=== PATIENT | female | born 1955 | race Native Hawaiian/Other Pacific Islander ===

== ENCOUNTER 2016-12-20 11:48 | Outpatient (CLI) | payer OTHER ==
[~2016-12-20 11:48] MED LIST: ACET7.5T70 PO; ALLO100T22 PO; CARBAMAZEPIN200 M1 PO; CARBAMAZEPIN200 M2 PO; DEMADEX20 MG PO; ESTR0.3T3 PO; FAMO20TA4 PO; FLUT0.05 NAS; FOLI1TAB26 PO; GABA300C2 PO; HYDR25TA60 PO; IRON SUPPLEMEN325 MG PO; K-TABS10 MEQ PO; LAMISIL250 MG OR; LISI5TAB10 PO; MECL25TA84 PO; MECLIZINE25 MG PO; METO50TA27 PO; NABU750T PO; NABUMETONE750 MG PO; NITR0.4S2 SL; OXYB5TAB56 PO; OXYC5TAB53 PO; PANT40TA PO; PHENOBARB32.4 MG PO; PLAVIX75 MG PO; POTASSIUM25 MEQ OR; PROM25TA52 PO; RANI150T78 PO; TRAZ50TA36 PO; UNITH DIRECT25 MCG PO; ZOCOR80 MG PO
== END 2016-12-20 11:51 | disposition short-term general hospital (02) ==
LOC: AMB 11:48
DX: G40.89 Other seizures (principal)
CPT/HCPCS: A0425; A0429

== ENCOUNTER 2016-12-20 11:55 | Emergency (ER) | payer OTHER ==
[~2016-12-20] VITALS: Ht 170.2 cm; Wt 49.0 kg
[2016-12-20 11:55] VITALS: TEMP 98
[2016-12-20 12:51] LABS: POTASSIUM 3.4 mmol/L (3.6-5.2)
[2016-12-20 14:10] LABS: PLATELET COUNT 232 K/uL (152-353)
[2016-12-20 14:15] VITALS: BP 127/71
== END 2016-12-20 15:30 | disposition home or self-care (01) ==
LOC: ED 11:55
DX: R56.9 Unspecified convulsions (principal); I69.398 Other sequelae of cerebral infarction; G93.89 Other specified disorders of brain
CPT/HCPCS: 36415; 80053; 85027; 99283

== ENCOUNTER 2016-12-22 11:35 | Outpatient (CLI) | payer OTHER | END 2016-12-22 11:37 | disposition short-term general hospital (02) | LOC: AMB 11:35 | DX: R11.2 Nausea with vomiting, unspecified (principal); R19.7 Diarrhea, unspecified | CPT/HCPCS: A0425; A0429 ==

== ENCOUNTER 2016-12-23 11:45 | Outpatient (CLI) | payer OTHER | END 2016-12-23 12:01 | disposition short-term general hospital (02) | LOC: AMB 11:45 | DX: R11.2 Nausea with vomiting, unspecified (principal); R53.1 Weakness | CPT/HCPCS: A0425; A0427 ==

== ENCOUNTER 2017-01-27 13:18 | Outpatient (CLI) | payer OTHER | END 2017-01-27 18:00 | disposition home or self-care (01) | LOC: LAB 13:18 | DX: N39.0 Urinary tract infection, site not specified (principal) | CPT/HCPCS: 81000; 87077; 87086; 87088; 87186 ==

== ENCOUNTER 2017-05-07 11:18 | Outpatient (CLI) | payer OTHER ==
[2017-05-07] MEDS ORDERED: CLOP75TA2 PO (12:53)
[2017-05-07] MEDS ORDERED: GRALISE600 MG OR (12:54)
== END 2017-05-07 11:21 | disposition short-term general hospital (02) ==
LOC: AMB 11:18
DX: R60.0 Localized edema (principal); L97.528 Non-pressure chronic ulcer of other part of left foot with other specified severity
CPT/HCPCS: A0425; A0427

== ENCOUNTER 2017-05-07 11:44 | Emergency (ER) | payer OTHER ==
[~2017-05-07] VITALS: Ht 170.2 cm; Wt 77.1 kg
[2017-05-07 12:25] LABS: PLATELET COUNT 209 K/uL (152-353)
[2017-05-07 12:46] LABS: POTASSIUM 3.2 mmol/L (3.6-5.2)
[2017-05-07] MEDS ORDERED: CLOP75TA2 PO (12:53)
[2017-05-07] MEDS ORDERED: GRALISE600 MG OR (12:54)
[2017-05-07 13:00] VITALS: TEMP 98
[2017-05-07 16:15] VITALS: BP 136/80
== END 2017-05-07 16:00 | disposition home or self-care (01) ==
LOC: ED 11:44
PROVIDERS: Emergency Medicine
DX: I73.89 Other specified peripheral vascular diseases (principal); D63.8 Anemia in other chronic diseases classified elsewhere; E87.6 Hypokalemia; I10 Essential (primary) hypertension; L08.89 Other specified local infections of the skin and subcutaneous tissue; E88.09 Other disorders of plasma-protein metabolism, not elsewhere classified
CPT/HCPCS: 36415; 80053; 80156; 80184; 81000; 82550; 84484; 85027; 87070; 87077; 87186; 87205; 99283

== ENCOUNTER 2017-05-09 11:11 | Outpatient (CLI) | payer OTHER ==
[~2017-05-09 11:11] MED LIST changes: +CLOP75TA2 PO; +GRALISE600 MG OR
== END 2017-05-09 11:14 | disposition short-term general hospital (02) ==
LOC: AMB 11:11
DX: M79.672 Pain in left foot (principal); M79.671 Pain in right foot; R53.1 Weakness; W18.39XA Other fall on same level, initial encounter; Y92.098 Other place in other non-institutional residence as the place of occurrence of the external cause
CPT/HCPCS: A0425; A0429

== ENCOUNTER 2017-05-09 11:15 | Emergency (ER) | payer OTHER ==
[~2017-05-09] VITALS: Ht 170.2 cm; Wt 72.6 kg
[2017-05-09 11:24] VITALS: BP 158/84; TEMP 98.2
== END 2017-05-09 13:25 | disposition home or self-care (01) ==
LOC: ED 11:15
DX: S90.32XA Contusion of left foot, initial encounter (principal); S90.31XA Contusion of right foot, initial encounter; L03.116 Cellulitis of left lower limb; Z87.81 Personal history of (healed) traumatic fracture; M79.671 Pain in right foot; W01.0XXA Fall on same level from slipping, tripping and stumbling without subsequent striking against object, initial encounter; Y92.098 Other place in other non-institutional residence as the place of occurrence of the external cause
CPT/HCPCS: 99282

== ENCOUNTER 2017-05-26 00:11 | Outpatient (CLI) | payer OTHER ==
[2017-05-27] MEDS ORDERED: FLONASE AL50 MCG/ACT (01:53)
[2017-05-27] MEDS ORDERED: VITAMIN D50000 UNT OR (01:54)
[2017-05-27] MEDS ORDERED: POT CHLORIDE10 ME1 OR (01:55)
[2017-05-27] MEDS ORDERED: DEMADEX20 MG PO (01:56)
== END 2017-05-26 00:13 | disposition short-term general hospital (02) ==
LOC: AMB 00:11
DX: R56.9 Unspecified convulsions (principal)
CPT/HCPCS: A0425; A0427

== ENCOUNTER 2017-05-27 00:33 | Observation (INO) | payer OTHER ==
[2017-05-27] VITALS (7 sets, daily range): BP systolic 123–180; BP diastolic 57–98; TEMP 97.4–98.4; Ht 170.2 cm; Wt 65.8 kg
[~2017-05-27] VITALS: Ht 170.2 cm; Wt 65.8 kg
[2017-05-27 01:05] LABS: PLATELET COUNT 304 K/uL (152-353)
[2017-05-27 01:13] LABS: POTASSIUM 3.2 mmol/L (3.6-5.2)
[2017-05-27] MEDS ORDERED: FLONASE AL50 MCG/ACT (01:53)
[2017-05-27] MEDS ORDERED: VITAMIN D50000 UNT OR (01:54)
[2017-05-27] MEDS ORDERED: POT CHLORIDE10 ME1 OR (01:55)
[2017-05-27] MEDS ORDERED: DEMADEX20 MG PO (01:56)
[2017-05-27 10:52] LABS: POTASSIUM 4.5 mmol/L (3.6-5.2)
[2017-05-27 11:12] LABS: PLATELET COUNT 274 K/uL (152-353)
[2017-05-28] VITALS: BP 111/51; TEMP 97.9
[2017-05-28 04:00] VITALS: BP 123/75; TEMP 98
[2017-05-28 06:10] LABS: PLATELET COUNT 269 K/uL (152-353)
[2017-05-28 06:23] LABS: POTASSIUM 3.5 mmol/L (3.6-5.2)
[2017-05-28 08:00] VITALS: BP 139/70; TEMP 99.2
== END 2017-05-28 11:52 | disposition home or self-care (01) ==
LOC: ED 00:33 → MED/SURG 02:20
PROVIDERS: Family Medicine
DX: G40.89 Other seizures (principal); E87.1 Hypo-osmolality and hyponatremia; E87.6 Hypokalemia; E83.51 Hypocalcemia; R74.8 Abnormal levels of other serum enzymes; I12.9 Hypertensive chronic kidney disease with stage 1 through stage 4 chronic kidney disease, or unspecified chronic kidney disease; N18.3 Chronic kidney disease, stage 3 (moderate); Z86.73 Personal history of transient ischemic attack (TIA), and cerebral infarction without residual deficits
CPT/HCPCS: 36415; 36416; 80053; 80156; 80184; 85027; 94760; 96360; 96365; 96366; 96372; 96375; 99220; 99284; G0378; J1650; J2060; J3490

== ENCOUNTER 2017-06-21 13:00 | Observation (INO) | payer OTHER ==
[2017-06-21] VITALS (7 sets, daily range): BP systolic 105–142; BP diastolic 59–78; TEMP 97.7–98; Ht 170.2 cm; Wt 65.1 kg
[~2017-06-21] VITALS: Ht 170.2 cm; Wt 65.1 kg
[~2017-06-21 13:00] MED LIST changes: +FLONASE AL50 MCG/ACT; +POT CHLORIDE10 ME1 OR; +VITAMIN D50000 UNT OR
[2017-06-21 14:03] LABS: PLATELET COUNT 192 K/uL (152-353)
[2017-06-22 04:00] VITALS: BP 121/57; TEMP 97.5
[2017-06-22 06:47] LABS: PLATELET COUNT 183 K/uL (152-353)
[2017-06-22 07:23] LABS: POTASSIUM 3.6 mmol/L (3.6-5.2)
[2017-06-22 08:00] VITALS: BP 142/77; TEMP 98.4
[2017-06-22] MEDS ORDERED: FIORICET PO (10:40)
== END 2017-06-22 11:33 | disposition home or self-care (01) ==
LOC: ED 13:00 → MED/SURG 15:35
DX: S00.03XA Contusion of scalp, initial encounter (principal); W05.0XXA Fall from non-moving wheelchair, initial encounter; Y93.89 Activity, other specified; Y92.89 Other specified places as the place of occurrence of the external cause; Y99.8 Other external cause status; G40.802 Other epilepsy, not intractable, without status epilepticus; I69.854 Hemiplegia and hemiparesis following other cerebrovascular disease affecting left non-dominant side; K21.9 Gastro-esophageal reflux disease without esophagitis; I10 Essential (primary) hypertension
CPT/HCPCS: 36415; 80048; 80053; 85027; 96374; 96375; 99220; 99283; G0378; J1642; J2405

== ENCOUNTER 2017-07-13 23:02 | Outpatient (CLI) | payer OTHER ==
[~2017-07-13 23:02] MED LIST changes: +FIORICET PO
[2017-07-14] MEDS ORDERED: ROWEEPRA500 MG PO (02:49)
== END 2017-07-13 23:04 | disposition short-term general hospital (02) ==
LOC: AMB 23:02
DX: R51 Headache (principal); R11.10 Vomiting, unspecified; W18.11XA Fall from or off toilet without subsequent striking against object, initial encounter; Y92.098 Other place in other non-institutional residence as the place of occurrence of the external cause
CPT/HCPCS: A0425; A0427

== ENCOUNTER 2017-07-13 23:08 | Observation (INO) | payer OTHER ==
[~2017-07-13] VITALS: Ht 170.2 cm; Wt 67.8 kg
[2017-07-13 23:26] VITALS: BP 149/68; TEMP 98.6
[2017-07-14 01:41] LABS: PLATELET COUNT 187 K/uL (152-353)
[2017-07-14 02:21] LABS: POTASSIUM 3.6 mmol/L (3.6-5.2)
[2017-07-14] MEDS ORDERED: ROWEEPRA500 MG PO (02:49)
[2017-07-14 07:27] VITALS: BP 192/88; TEMP 97; Ht 170.2 cm; Wt 67.8 kg
[2017-07-14 07:45] VITALS: BP 169/91; TEMP 97.4
[2017-07-14 12:00] VITALS: BP 99/42; TEMP 97.7
[2017-07-14 12:02] LABS: PLATELET COUNT 198 K/uL (152-353)
[2017-07-14 12:20] LABS: POTASSIUM 3.6 mmol/L (3.6-5.2)
[2017-07-14 16:00] VITALS: BP 102/52; TEMP 97.7
[2017-07-14 20:00] VITALS: BP 110/52; TEMP 98
[2017-07-15] VITALS: BP 119/43; TEMP 97.8
[2017-07-15 04:00] VITALS: BP 112/57; TEMP 98.2
[2017-07-15 05:48] LABS: PLATELET COUNT 166 K/uL (152-353)
[2017-07-15 06:27] LABS: POTASSIUM 3.8 mmol/L (3.6-5.2)
[2017-07-15 08:18] VITALS: BP 104/55; TEMP 97.9
[2017-07-15] MEDS ORDERED: MACROBID100 MG OR (11:49)
== END 2017-07-15 12:40 | disposition home or self-care (01) ==
LOC: ED 23:08 → MED/SURG 07-14 02:21
PROVIDERS: Emergency Medicine
DX: N10 Acute pyelonephritis (principal); G62.9 Polyneuropathy, unspecified; K21.9 Gastro-esophageal reflux disease without esophagitis; I10 Essential (primary) hypertension; E78.4 Other hyperlipidemia; R51 Headache; D64.89 Other specified anemias; R33.9 Retention of urine, unspecified; B96.20 Unspecified Escherichia coli [E. coli] as the cause of diseases classified elsewhere; R30.0 Dysuria; R93.5 Abnormal findings on diagnostic imaging of other abdominal regions, including retroperitoneum
CPT/HCPCS: 36415; 51702; 80053; 81000; 85027; 87040; 87077; 87086; 87088; 87186; 96365; 96372; 99220; 99284; G0378; J0696; J0744; J1642; J1650; J3411; J3490; J7120

== ENCOUNTER 2017-11-11 10:28 | Outpatient (CLI) | payer OTHER ==
[~2017-11-11 10:28] MED LIST changes: +MACROBID100 MG OR; +ROWEEPRA500 MG PO
[2017-11-11] MEDS ORDERED: KP FOLIC ACID1 MG PO ×2 (14:54)
== END 2017-11-11 10:31 | disposition short-term general hospital (02) ==
LOC: AMB 10:28
DX: R47.81 Slurred speech (principal); Z86.73 Personal history of transient ischemic attack (TIA), and cerebral infarction without residual deficits
CPT/HCPCS: A0425; A0427

== ENCOUNTER 2017-11-11 10:34 | Observation (INO) | payer OTHER ==
[~2017-11-11] VITALS: Ht 170.2 cm; Wt 66.5 kg
[2017-11-11 10:32] VITALS: BP 163/80; TEMP 98.2
[2017-11-11 10:58] LABS: PLATELET COUNT 219 K/uL (152-353)
[2017-11-11 11:04] LABS: PARTIAL THROMBOPLASTIN TIME 76.3 SECONDS (24.5-33.6); POTASSIUM 3.5 mmol/L (3.6-5.2)
[2017-11-11 13:59] VITALS: BP 172/86; TEMP 98.8; Ht 170.2 cm; Wt 66.5 kg
[2017-11-11] MEDS ORDERED: KP FOLIC ACID1 MG PO ×2 (14:54)
[2017-11-11 16:00] VITALS: BP 148/65; TEMP 97.4
[2017-11-11 20:18] VITALS: BP 126/77; TEMP 97.9
[2017-11-12 00:20] VITALS: BP 133/71; TEMP 98.7
[2017-11-12 04:28] VITALS: BP 121/60; TEMP 97.9
[2017-11-12 07:48] LABS: PLATELET COUNT 176 K/uL (152-353)
[2017-11-12 07:59] LABS: POTASSIUM 3.3 mmol/L (3.6-5.2)
[2017-11-12 08:00] VITALS: BP 163/67; TEMP 98.7
[2017-11-12 12:00] VITALS: BP 171/68; TEMP 98.6
--- NOTE | 2017-11-12 13:19 | NUR ---
IV D/C'D PER DOCTORS ORDERS. DISCHARGE INSTRUCTIONS GIVEN. PT AND PTS SPOUSE UNDERSTANDS ALL DISCHARGE INSTRUCTIONS. DR. OLMEDO'S OFFICE WAS CLOSED BUT INFORMED PT/PTS SPOUSE TO CALL AND SCHEDULE AN APPOINTMENT FOR FOLLOW UP. PT LEFT VIA WC. SPOUSE AT SIDE. NAD NOTED.
== END 2017-11-12 13:20 | disposition home or self-care (01) ==
LOC: ED 10:34 → MED/SURG 11:58
DX: R41.82 Altered mental status, unspecified (principal); I10 Essential (primary) hypertension; E78.4 Other hyperlipidemia; K21.9 Gastro-esophageal reflux disease without esophagitis; I69.354 Hemiplegia and hemiparesis following cerebral infarction affecting left non-dominant side; N39.0 Urinary tract infection, site not specified; R47.81 Slurred speech; Z86.73 Personal history of transient ischemic attack (TIA), and cerebral infarction without residual deficits; G40.802 Other epilepsy, not intractable, without status epilepticus; R53.1 Weakness; I73.89 Other specified peripheral vascular diseases
CPT/HCPCS: 80053; 80307; 80320; 81000; 85027; 85610; 85730; 87077; 87086; 87088; 87185; 87186; 93005; 99220; 99284; G0378; J1650; J1956

== ENCOUNTER 2017-11-15 23:13 | Outpatient (CLI) | payer OTHER ==
[~2017-11-15 23:13] MED LIST changes: +KP FOLIC ACID1 MG PO
== END 2017-11-15 23:15 | disposition short-term general hospital (02) ==
LOC: AMB 23:13
DX: M25.512 Pain in left shoulder (principal)
CPT/HCPCS: A0425; A0429

== ENCOUNTER 2017-11-15 23:21 | Emergency (ER) | payer OTHER ==
[~2017-11-15] VITALS: Ht 170.2 cm; Wt 66.2 kg
[2017-11-16 00:56] VITALS: BP 140/68; TEMP 98.2
== END 2017-11-16 01:01 | disposition home or self-care (01) ==
LOC: ED 23:21
PROC: 2W39X1Z Immobilization of Left Upper Extremity using Splint (ICD-10-PCS; principal; 2017-11-15)
DX: S42.212A Unspecified displaced fracture of surgical neck of left humerus, initial encounter for closed fracture (principal); M25.512 Pain in left shoulder; W06.XXXA Fall from bed, initial encounter; Y92.89 Other specified places as the place of occurrence of the external cause
CPT/HCPCS: 99283